=== PATIENT | male | born 1965 | race Caucasian/White ===

== ENCOUNTER 2016-12-03 16:58 | Inpatient (IN) | payer OTHER ==
[~2016-12-03] VITALS: Ht 180.3 cm; Wt 89.7 kg
[~2016-12-03 16:58] MED LIST: CEPH500 PO; CITA20 PO; LITH300 PO; NEUR100C PO
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
[2016-12-03 18:34] VITALS: BP 124/75; PULSE 98; RESP 18; TEMP 98.3; O2SAT 98
[2016-12-03] MEDS ORDERED: BUSP15TA PO (18:45)
[2016-12-03] MEDS ORDERED: [UNRECOGNIZED DRUG - REMARK] PO (18:45)
[2016-12-03] MEDS ORDERED: NEUR100C PO (18:45)
[2016-12-03] MEDS ORDERED: LAMO100 PO (18:45)
[2016-12-03] MEDS ORDERED: CELE20TA PO (18:45)
[2016-12-03 19:13] VITALS: BP 103/58; PULSE 81; RESP 14; O2SAT 95
[2016-12-03 19:29] LABS: AUTOMATED NEUTROPHIL # 3.2 TH/MM3 (1.8-7.7); BASOPHIL % 0.4 % (0.0-2.0); EOSINOPHIL # 0.2 TH/MM3 (0-0.4); EOSINOPHIL % 3.2 % (0.0-4.0); HEMATOCRIT 36.2 % (39.0-51.0); HEMO FLAGS DIFF FINAL; LYMPHOCYTE # 2.6 TH/MM3 (1.0-4.8); MEAN CELL VOLUME 94.9 FL (80.0-100.0); MEAN CORPUSCULAR HEMOGLOBIN 33.7 PG (27.0-34.0); MEAN CORPUSCULAR HGB CONC 35.4 % (32.0-36.0); MONO % 8.2 % (0.0-8.0); NEUT % 49.2 % (16.0-70.0); PLATELET COUNT 206 TH/MM3 (150-450); RED BLOOD COUNT 3.81 MIL/MM3 (4.50-5.90); RED CELL DISTRIBUTION WIDTH 13.1 % (11.6-17.2); WHITE BLOOD COUNT 6.5 TH/MM3 (4.0-11.0)
[2016-12-03 19:33] LABS: AMPHETAMINE, URINE NEG (NEG); BARBITURATES, URINE NEG (NEG); COCAINE, URINE POS (NEG)
[2016-12-03 19:57] LABS: ANION GAP 10 MEQ/L (5-15); AST (GOT) 25 U/L (15-37); BICARBONATE 22.6 MEQ/L (21.0-32.0); BLOOD UREA NITROGEN 20 MG/DL (7-18); CHLORIDE 107 MEQ/L (98-107); GLOMERULAR FILTRATION RATE 57 ML/MIN (>89); POTASSIUM 3.5 MEQ/L (3.5-5.1); SODIUM (NA) 140 MEQ/L (136-145)
[2016-12-03 19:58] LABS: ALT (GPT) 30 U/L (12-78)
[2016-12-03 20:00] LABS: ALKALINE PHOSPHATASE 85 U/L (45-117); TOTAL BILIRUBIN ADULT 0.2 MG/DL (0.2-1.0)
--- NOTE | 2016-12-03 20:03 | PD ---
Physical Exam Narrative GENERAL: [Alert, well-appearing male no acute distress. Patient resting on stretcher comfortably. SKIN: Focused skin assessment warm/dry. HEAD: Atraumatic. Normocephalic. EYES: Pupils equal and round. No scleral icterus. No injection or drainage. ENT: No nasal bleeding or discharge. Mucous membranes pink and moist. NECK: Trachea midline. No JVD. CARDIOVASCULAR: Regular rate and rhythm. No murmur appreciated. RESPIRATORY: No accessory muscle use. Clear to auscultation. Breath sounds equal bilaterally. GASTROINTESTINAL: Abdomen soft, non-tender, nondistended. Hepatic and splenic margins not palpable. MUSCULOSKELETAL: No obvious deformities. No clubbing. No cyanosis. No edema. NEUROLOGICAL: Awake and alert. No obvious cranial nerve deficits. Motor grossly within normal limits. Normal speech. PSYCHIATRIC: Appropriate mood and affect; insight and judgment normal. Data Data Last Documented VS Vital Signs Date Time Temp Pulse Resp B/P Pulse Ox O2 Delivery O2 Flow Rate FiO2 12/03/16 19:13 81 14 103/58 95 Room Air 12/03/16 18:34 98.3 Orders Complete Blood Count With Diff (12/03/16 17:47) Comprehensive Metabolic Panel (12/03/16 17:47) Psych Screen (12/03/16 17:47) Drug Screen, Random Urine (12/03/16 17:47) Alcohol (Ethanol) (12/03/16 17:47) Diet Regular Basic (12/03/16 Dinner) Diet Regular Basic (12/04/16 Breakfast) Labs Laboratory Tests Test 12/03/16 12/03/16 18:10 18:45 Urine Opiates Screen NEG Urine Barbiturates Screen NEG Urine Amphetamines Screen NEG Urine Benzodiazepines Screen NEG Urine Cocaine Screen POS Urine Cannabinoids Screen NEG White Blood Count 6.5 TH/MM3 Red Blood Count 3.81 MIL/MM3 Hemoglobin 12.8 GM/DL Hematocrit 36.2 % Mean Corpuscular Volume 94.9 FL Mean Corpuscular Hemoglobin 33.7 PG Mean Corpuscular Hemoglobin 35.4 % Concent Red Cell Distribution Width 13.1 % Platelet Count 206 TH/MM3 Mean Platelet Volume 8.1 FL Neutrophils (%) (Auto) 49.2 % Lymphocytes (%) (Auto) 39.0 % Monocytes (%) (Auto) 8.2 % Eosinophils (%) (Auto) 3.2 % Basophils (%) (Auto) 0.4 % Neutrophils # (Auto) 3.2 TH/MM3 Lymphocytes # (Auto) 2.6 TH/MM3 Monocytes # (Auto) 0.5 TH/MM3 Eosinophils # (Auto) 0.2 TH/MM3 Basophils # (Auto) 0.0 TH/MM3 CBC Comment DIFF FINAL Differential Comment Sodium Level 140 MEQ/L Potassium Level 3.5 MEQ/L Chloride Level 107 MEQ/L Carbon Dioxide Level 22.6 MEQ/L Anion Gap 10 MEQ/L Blood Urea Nitrogen 20 MG/DL Creatinine 1.31 MG/DL Estimat Glomerular Filtration 57 ML/MIN Rate Random Glucose 91 MG/DL Calcium Level 8.5 MG/DL Total Bilirubin 0.2 MG/DL Aspartate Amino Transf 25 U/L (AST/SGOT) Alanine Aminotransferase 30 U/L (ALT/SGPT) Alkaline Phosphatase 85 U/L Total Protein 7.1 GM/DL Albumin 3.8 GM/DL Ethyl Alcohol Level 164 MG/DL MDM Medical Record Reviewed: Yes Supervised Visit with YOAV: Yes Narrative Course [id number] assumed the care of patient at this time. Patient was seen and evaluated by myself. His labs are pending. He is awaiting psych screen pending medical clearance. CBC: Mild anemia hemoglobin 12.8, CMP: BUN/creatinine mildly elevated patient started follow-up with his primary care physician regarding this. Tox screen: Positive for cocaine Patient is medically clear. Pending psych screening. Diagnosis Primary Impression: Suicidal ideation Conchita Chung Dec 03, 2016 20:03
[2016-12-03 21:46] VITALS: BP 110/64; PULSE 73; RESP 18; TEMP 97.7; O2SAT 98
[2016-12-04] MEDS ORDERED: CEPH500C PO (00:13)
[2016-12-04] MEDS ORDERED: ASPI81TA11 PO (00:24)
[2016-12-04] MEDS ORDERED: ZOCO40TA PO (00:24)
[2016-12-04 02:27] VITALS: BP 103/62; PULSE 58; RESP 16; O2SAT 97
[2016-12-04 06:23] VITALS: BP 116/74; PULSE 57; RESP 16; O2SAT 98
[2016-12-04] MEDS ORDERED: CEPHALEXIN MONOHYDRATE 500 MG CAP PO ONE (09:45)
[2016-12-04] MEDS ORDERED: IBUPROFEN 800 MG TAB PO ONE (09:45)
[2016-12-04 10:00] VITALS: BP 123/75; PULSE 67; RESP 18
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
[2016-12-04] MEDS ORDERED: hydrOXYzine HCL 50 MG TAB PO PRN (11:30)
[2016-12-04] MEDS ORDERED: FLUMAZENIL 0.5 MG/5 ML VIAL IV PUSH PRN (11:30)
[2016-12-04] MEDS ORDERED: ALUMINUM/MAGNESIUM/SIMETH 30 ML CUP PO PRN (11:30)
[2016-12-04] MEDS ORDERED: LORazepam 1 MG TAB PO PRN (11:30)
[2016-12-04] MEDS ORDERED: ACETAMINOPHEN 325 MG TAB PO PRN (11:30)
[2016-12-04] MEDS ORDERED: BENZTROPINE MESYLATE 1 MG TAB PO PRN (11:30)
[2016-12-04] MEDS ORDERED: BENZTROPINE MESYLATE 2 MG/2 ML VIAL IM PRN (11:30)
[2016-12-04] MEDS ORDERED: LORazepam 2 MG TAB PO PRN (11:30)
[2016-12-04] MEDS ORDERED: LORazepam 2 MG/ML VIAL IM PRN ×4 (11:30)
[2016-12-04] MEDS ORDERED: diphenhydrAMINE HCL 50 MG CAP PO PRN (11:30)
[2016-12-04] MEDS: CITALOPRAM HYDROBROMIDE 40 MG TAB PO SCH (11:55)
[2016-12-04 12:57] VITALS: BP 150/87; PULSE 63; RESP 16; TEMP 98; O2SAT 100
[2016-12-04] MEDS: GABAPENTIN 100 MG CAP PO SCH (13:53)
[2016-12-04] MEDS: CEPHALEXIN MONOHYDRATE 500 MG CAP PO SCH ×3 (13:53→21:08)
[2016-12-04] MEDS: NICOTINE 21 MG/24 HR PATCH T-DERMAL SCH (14:22)
[2016-12-04] MEDS: IBUPROFEN 600 MG TAB PO PRN (18:36)
[2016-12-04 18:43] VITALS: BP 129/74; PULSE 58; RESP 16; TEMP 97.7; O2SAT 98
[2016-12-04] MEDS: LATANOPROST 0.005% OPHT SOLN 2.5 ML BTL EACH EYE SCH (21:00)
[2016-12-04] MEDS: busPIRone HCL 10 MG TAB PO SCH (21:07)
[2016-12-04] MEDS: PRAVASTATIN SOD 80 MG TAB PO SCH (21:08)
[2016-12-04] MEDS: GABAPENTIN 300 MG CAP PO SCH (21:08)
[2016-12-04] MEDS: lamoTRIgine 100 MG TAB PO SCH (21:09)
[2016-12-05] MEDS: IBUPROFEN 600 MG TAB PO PRN ×3 (03:58→20:37)
[2016-12-05 06:15] VITALS: BP 133/70; PULSE 96; RESP 18; TEMP 98.4; O2SAT 96
[2016-12-05] MEDS: CEPHALEXIN MONOHYDRATE 500 MG CAP PO SCH ×4 (08:49→20:36)
[2016-12-05] MEDS: ASPIRIN EC 81 MG TABEC PO SCH (08:50)
[2016-12-05] MEDS: PANTOPRAZOLE SOD 20 MG DELAYED RELEASE TAB PO SCH (08:50)
[2016-12-05] MEDS: FOLIC ACID 1 MG TAB PO SCH (08:50)
[2016-12-05] MEDS: lamoTRIgine 100 MG TAB PO SCH ×2 (08:50→20:38)
[2016-12-05] MEDS: CITALOPRAM HYDROBROMIDE 40 MG TAB PO SCH (08:50)
[2016-12-05] MEDS: THIAMINE HCL 100 MG TAB PO SCH (08:51)
[2016-12-05] MEDS: busPIRone HCL 10 MG TAB PO SCH ×2 (08:51→20:39)
[2016-12-05] MEDS ORDERED: NICOTINE 21 MG/24 HR PATCH T-DERMAL SCH (09:00)
[2016-12-05] MEDS: GABAPENTIN 100 MG CAP PO SCH ×2 (09:00→14:46)
[2016-12-05] MEDS: NICOTINE 21 MG/24 HR PATCH T-DERMAL SCH (09:49)
[2016-12-05] MEDS: MAGNESIUM HYDROXIDE SUSP 30 ML CUP PO PRN (09:49)
[2016-12-05 10:19] LABS: ANION GAP 7 MEQ/L (5-15); BLOOD UREA NITROGEN 19 MG/DL (7-18); CHLORIDE 107 MEQ/L (98-107); GLOMERULAR FILTRATION RATE 69 ML/MIN (>89); HDL CHOLESTEROL 55.5 MG/DL (40.0-60.0); LDL CHOLESTEROL 139 MG/DL (0-99); POTASSIUM 4.3 MEQ/L (3.5-5.1); SODIUM (NA) 139 MEQ/L (136-145)
[2016-12-05 13:15] LABS: HEMOGLOBIN A1a 1.2 %; HEMOGLOBIN A1b 1.8 %; HEMOGLOBIN Ao 84.8 %; HEMOGLOBIN LA1C 2.2 %; HEMOGLOBIN P3 3.8 %
--- NOTE | 2016-12-05 14:45 | HHI.PYPN ---
Subjective Remarks Patient was seen and case discussed with nursing. CIWA is 0. She is alert and oriented 4. No auditory visual hallucinations, no confusion, no nausea or vomiting, no tremors. Patient remains depressed secondary to various life stressors. Minimizes his recent cocaine use. Affect is constricted. Mood remains depressed. He denies suicidal ideation intent or plan Objective Alert: Yes [place]: Person, Place, Date, Situation Mood: Depressed Affect: Blunted Memory Intact: Immediate (grossly intact) Hallucinations: Auditory (denies) Delusions: No Delusion Type: Other (none elicited) Suicidal: Ideation (denies) Homicidal: Ideation (denies) Insight/Judgment Poor Labs Test 12/05/16 09:24 Sodium Level 139 MEQ/L Potassium Level 4.3 MEQ/L Chloride Level 107 MEQ/L Carbon Dioxide Level 25.0 MEQ/L Anion Gap 7 MEQ/L Blood Urea Nitrogen 19 MG/DL Creatinine 1.12 MG/DL Estimat Glomerular Filtration 69 ML/MIN Rate Random Glucose 98 MG/DL Hemoglobin A1c 5.7 % Calcium Level 9.3 MG/DL Triglycerides Level 190 MG/DL Cholesterol Level 232 MG/DL LDL Cholesterol 139 MG/DL HDL Cholesterol 55.5 MG/DL Cholesterol/HDL Ratio 4.18 RATIO Vitals/IOs Vital Signs Date Time Temp Pulse Resp B/P Pulse Ox O2 Delivery O2 Flow Rate FiO2 12/05/16 06:15 98.4 96 18 133/70 96 12/04/16 10:00 Room Air Assessment & Plan Problem List: (1) Bipolar disorder ICD Code: F31.9 (2) Polysubstance abuse ICD Code: F19.10 Assessment & Plan Continue current treatment plan Justification for Cont. Inpt. Patient would decompensate in a less restrictive setting Request HC Surrog/Guard Advoc?: No Problem Qualifiers (1) Bipolar disorder: Qualified Code: F31.4 - Bipolar disorder, current episode depressed, severe, without psychotic features Fam Alcala DO Dec 05, 2016 14:45
[2016-12-05 15:34] VITALS: BP 113/78; PULSE 65; RESP 18; TEMP 97.4
[2016-12-05] MEDS: PRAVASTATIN SOD 80 MG TAB PO SCH (20:38)
[2016-12-05] MEDS: GABAPENTIN 300 MG CAP PO SCH (20:40)
[2016-12-05] MEDS: LATANOPROST 0.005% OPHT SOLN 2.5 ML BTL EACH EYE SCH (20:55)
[2016-12-06] MEDS: IBUPROFEN 600 MG TAB PO PRN ×2 (05:43→15:57)
[2016-12-06 06:03] VITALS: BP 121/71; PULSE 59; RESP 16; TEMP 97.7; O2SAT 97
[2016-12-06] MEDS: busPIRone HCL 10 MG TAB PO SCH ×2 (09:19→20:13)
[2016-12-06] MEDS: ASPIRIN EC 81 MG TABEC PO SCH (09:19)
[2016-12-06] MEDS: lamoTRIgine 100 MG TAB PO SCH ×2 (09:19→20:13)
[2016-12-06] MEDS: THIAMINE HCL 100 MG TAB PO SCH (09:19)
[2016-12-06] MEDS: CITALOPRAM HYDROBROMIDE 40 MG TAB PO SCH (09:19)
[2016-12-06] MEDS: FOLIC ACID 1 MG TAB PO SCH (09:19)
[2016-12-06] MEDS: PANTOPRAZOLE SOD 20 MG DELAYED RELEASE TAB PO SCH (09:19)
[2016-12-06] MEDS: CEPHALEXIN MONOHYDRATE 500 MG CAP PO SCH ×4 (09:19→20:13)
[2016-12-06] MEDS: REMOVE OLD PATCH T-DERMAL SCH (09:24)
[2016-12-06] MEDS: NICOTINE 21 MG/24 HR PATCH T-DERMAL SCH (09:24)
[2016-12-06] MEDS: GABAPENTIN 100 MG CAP PO SCH ×2 (09:37→13:17)
--- NOTE | 2016-12-06 13:00 | HHI.PYPN ---
Subjective Remarks Patient seen and examined with nurse. Chart reviewed. Case discussed with nursing staff. On my examination today, the patient reports mood is slowly improving. He is somewhat future oriented, thinking about employment after discharge. Ongoing feelings of worthlessness. Sleep remains somewhat disrupted. Denies side effects from medications. No physical complaints. Review of Systems Except as stated in HPI: all other systems reviewed are Neg Objective Alert: Yes [place]: Person (oriented 3) Mood: Depressed (improving) Affect: Blunted Memory Intact: Comment (intact on clinical exam) Hallucinations: Other (no hallucinations) Delusions: No Delusion Type: Other (no delusions elicited) Suicidal: Ideation (no SI) Homicidal: Ideation (no HI) Insight/Judgment Fair Remarks No motor abnormalities. Thought processes linear. Grooming and hygiene good. No visible rash. Labs Labs reviewed. Vitals/IOs Vital Signs Date Time Temp Pulse Resp B/P Pulse Ox O2 Delivery O2 Flow Rate FiO2 12/06/16 06:03 97.7 59 16 121/71 97 12/04/16 10:00 Room Air Assessment & Plan Problem List: (1) Bipolar disorder ICD Code: F31.9 (2) Polysubstance abuse ICD Code: F19.10 Assessment & Plan Continue Lamictal as ordered. We might consider titrating this medication again , but we need to titrate slowly because of the risk of SJS. Offered patient hypnotic, but he says he has tried "all of them" and that they have paradoxical activating effect. Continue other psychotropics as ordered. Continue other medications and care as ordered. Justification for Cont. Inpt. Risk for decompensation Discharge Planning Pending stabilization anticipate discharge by the end of the week; Request HC Surrog/Guard Advoc?: No Problem Qualifiers (1) Bipolar disorder: Qualified Code: F31.4 - Bipolar disorder, current episode depressed, severe, without psychotic features Jameson Estrada MD Dec 06, 2016 13:00
[2016-12-06 17:12] VITALS: BP 112/67; PULSE 58; RESP 18; TEMP 97.8; O2SAT 98
[2016-12-06] MEDS: PRAVASTATIN SOD 80 MG TAB PO SCH (20:13)
[2016-12-06] MEDS: GABAPENTIN 300 MG CAP PO SCH (20:13)
[2016-12-06] MEDS: LATANOPROST 0.005% OPHT SOLN 2.5 ML BTL EACH EYE SCH (20:14)
[2016-12-07] MEDS: IBUPROFEN 600 MG TAB PO PRN ×2 (04:49→14:42)
[2016-12-07 06:18] VITALS: BP 112/70; PULSE 56; RESP 16; TEMP 97; O2SAT 98
[2016-12-07] MEDS: lamoTRIgine 100 MG TAB PO SCH ×2 (08:17→21:17)
[2016-12-07] MEDS: CEPHALEXIN MONOHYDRATE 500 MG CAP PO SCH ×4 (08:17→21:16)
[2016-12-07] MEDS: PANTOPRAZOLE SOD 20 MG DELAYED RELEASE TAB PO SCH (08:17)
[2016-12-07] MEDS: FOLIC ACID 1 MG TAB PO SCH (08:17)
[2016-12-07] MEDS: GABAPENTIN 100 MG CAP PO SCH ×2 (08:18→13:24)
[2016-12-07] MEDS: THIAMINE HCL 100 MG TAB PO SCH (08:18)
[2016-12-07] MEDS: ASPIRIN EC 81 MG TABEC PO SCH (08:18)
[2016-12-07] MEDS: CITALOPRAM HYDROBROMIDE 40 MG TAB PO SCH (08:18)
[2016-12-07] MEDS: busPIRone HCL 10 MG TAB PO SCH ×2 (08:18→21:16)
[2016-12-07] MEDS: NICOTINE 21 MG/24 HR PATCH T-DERMAL SCH (08:24)
[2016-12-07] MEDS: REMOVE OLD PATCH T-DERMAL SCH (08:25)
--- NOTE | 2016-12-07 09:40 | HHI.PYPN ---
Subjective Remarks Patient seen and examined. Chart reviewed. Case discussed in treatment team. On my examination today, patient remains fairly pessimistic. He says "nothing is going right." Overwhelmed by psychosocial stressors. Glad to be here in the hospital by his report. No SI/HI. Denies side effects from medications. No physical complaints. Requests sutures on lesion under R eye be removed, says they were supposed to be taken out a few days ago. Review of Systems Except as stated in HPI: all other systems reviewed are Neg Objective Alert: Yes [place]: Person, Place, Date Mood: Depressed Affect: Appropriate Memory Intact: Comment (intact) Hallucinations: Other (No AVH) Delusions: No Delusion Type: Other (no delusions elicited) Suicidal: Ideation (no SI) Homicidal: Ideation (no HI) Insight/Judgment Fair Remarks No motor abnormalities noted. TP linear. No visible rash. Lac under R eye appears well healed with no signs of swelling or erythema. Labs Labs reviewed. Vitals/IOs Vital Signs Date Time Temp Pulse Resp B/P Pulse Ox O2 Delivery O2 Flow Rate FiO2 12/07/16 06:18 97.0 56 16 112/70 98 12/04/16 10:00 Room Air Assessment & Plan Problem List: (1) Bipolar disorder ICD Code: F31.9 (2) Polysubstance abuse ICD Code: F19.10 Assessment & Plan Discussed with patient possible pharmacotherapeutic options re: ongoing low mood. We can titrate Lamictal but must do so slowly due to risk of SJS. I discussed possibly changing or augmenting his antidepressant, but he has never found this strategy terribly helpful. He declines medication adjustment at this time. Remove sutures and apply bacitracin to the wound under his right eye. Continue to monitor on the inpatient unit. Continue other medications and care as ordered. Justification for Cont. Inpt. Risk for decompensation Discharge Planning Pending stabilization Request HC Surrog/Guard Advoc?: No Problem Qualifiers (1) Bipolar disorder: Qualified Code: F31.4 - Bipolar disorder, current episode depressed, severe, without psychotic features Jameson Estrada MD Dec 07, 2016 09:40
[2016-12-07 18:00] VITALS: BP 107/74; PULSE 63; RESP 16; TEMP 98; O2SAT 95
[2016-12-07] MEDS: GABAPENTIN 300 MG CAP PO SCH (21:00)
[2016-12-07] MEDS: BACITRACIN TOP OINT 15 GM TUBE TOPICAL SCH (21:00)
[2016-12-07] MEDS: LATANOPROST 0.005% OPHT SOLN 2.5 ML BTL EACH EYE SCH (21:15)
[2016-12-07] MEDS: PRAVASTATIN SOD 80 MG TAB PO SCH (21:16)
[2016-12-08 05:32] VITALS: BP 109/57; PULSE 56; RESP 18; TEMP 98.1; O2SAT 96
[2016-12-08] MEDS: IBUPROFEN 600 MG TAB PO PRN ×2 (06:37→13:55)
[2016-12-08] MEDS: NICOTINE 21 MG/24 HR PATCH T-DERMAL SCH (08:58)
[2016-12-08] MEDS: FOLIC ACID 1 MG TAB PO SCH (08:58)
[2016-12-08] MEDS: CITALOPRAM HYDROBROMIDE 40 MG TAB PO SCH (08:58)
[2016-12-08] MEDS: ASPIRIN EC 81 MG TABEC PO SCH (08:58)
[2016-12-08] MEDS: PANTOPRAZOLE SOD 20 MG DELAYED RELEASE TAB PO SCH (08:59)
[2016-12-08] MEDS: GABAPENTIN 100 MG CAP PO SCH ×2 (08:59→12:40)
[2016-12-08] MEDS: lamoTRIgine 100 MG TAB PO SCH (08:59)
[2016-12-08] MEDS: busPIRone HCL 10 MG TAB PO SCH (08:59)
[2016-12-08] MEDS: CEPHALEXIN MONOHYDRATE 500 MG CAP PO SCH ×2 (08:59→12:40)
[2016-12-08] MEDS: THIAMINE HCL 100 MG TAB PO SCH (08:59)
[2016-12-08] MEDS: REMOVE OLD PATCH T-DERMAL SCH (09:00)
[2016-12-08] MEDS: BACITRACIN TOP OINT 15 GM TUBE TOPICAL SCH (09:00)
[2016-12-08] MEDS: MAGNESIUM HYDROXIDE SUSP 30 ML CUP PO PRN (10:28)
[2016-12-08] MEDS ORDERED: LATA.005%O EACH EYE (11:59)
[2016-12-08] MEDS ORDERED: GABA100C4 PO (11:59)
[2016-12-08] MEDS ORDERED: PANT20 PO (11:59)
[2016-12-08] MEDS ORDERED: BUSP10TA PO (11:59)
[2016-12-08] MEDS ORDERED: PRAV80TA PO (11:59)
[2016-12-08] MEDS ORDERED: LAMO100 PO ×2 (11:59)
[2016-12-08] MEDS ORDERED: CELE40TA PO (11:59)
[2016-12-08] MEDS ORDERED: ASPI-99 PO (11:59)
[2016-12-08] MEDS ORDERED: NEUR300C PO (11:59)
[2016-12-08] MEDS ORDERED: CEPH500C PO (11:59)
--- NOTE | 2016-12-08 11:59 | HHI.DS ---
Psychiatry Discharge Summary Inpatient Psychiatric care?: Yes Advance Directive: Yes Mental Health AdvanceDirective: No Health Care Proxy: No Admission Admission Date Dec 04, 2016 at 11:01 Admission Diagnosis: (1) Bipolar 1 disorder, depressed, severe ICD Code: F31.4 (2) Polysubstance abuse ICD Code: F19.10 Brief History Mr. Nuñez is a 51-year-old male with a reported history of bipolar disorder and a chart history of substance use issues who presents under a Wolfe act alleging suicidal ideation in the context of intoxication. Reviewing the electronic medical record, I note that the patient was admitted here at [facility] under my care in January 2015. He did apparently have some fairly significant personality pathology at that time. Patient seen and examined. Chart reviewed. Case discussed with nursing staff. On my examination today, the patient reports that he has been feeling increasingly depressed over the last several weeks. He is apparently hopelessness regarding his job situation. He is unemployed and looking for work but he has a history of charges of resisting arrest with violence and says that this is prejudicial against him getting any sort of meaningful employment. In addition to the hopelessness, anhedonia is present. Sleep is reportedly poor. Appetite fair. Some worthlessness. Endorses suicidal ideation but says "I feel pretty safe in here." Some subtle manipulativeness noted, possibly a harbinger of things to come, but for the time being he is generally cooperative. No psychotic symptoms. No hypomanic or manic symptoms. The remainder of the psychiatric ROS is negative. Past psychiatric history: Patient reports a history of bipolar disorder. Currently he is on Celexa and Lamictal along with BuSpar and gabapentin. Follows at the [facility]. Most recent psychiatric admission was here at [facility]. Endorses a history of multiple prior suicide attempts including by overdose and running into traffic. Family history: Patient denies a family history of serious mental illness or suicide. There is a family history of substance use issues. Chemical dependency history: Patient reports that he uses cocaine "here and there." Maintains that his alcohol use is sporadic. Denies a history of DTs or seizures. No other substance use. Social history: Lives with his in his mother's house. He has several stepchildren. He is an [employer] , honorable discharge, no combat. Denies any access to guns or firearms. Hindu. Not presently working. Trying to get on disability. Legal history as above. Tobacco Use In Past 30 Days: No Tobacco Past 30 Days Alcohol Use: 2-3 Times Per Week Hospital Course Patient was admitted to a locked, inpatient psychiatric unit. Appropriate precautions were in place throughout patient's hospital stay. Patient was seen and examined daily on the unit by psychiatry and also visited by counselor. Psychotropic medications were adjusted. Patient tolerated medication changes well without side effects. Patient had improvement in his presenting psychiatric symptomatology during the course of his hospital stay. There was no evidence of any suicidality or homicidality while under observation on the inpatient unit. The patient remained in good behavioral control. He was medication compliant. On the day of discharge: Patient seen and examined with nurse. Chart reviewed. Case discussed with nursing staff. No behavioral issues noted overnight. On my examination today, the patient reports that he feels improved from a psychiatric standpoint and is ready to leave the inpatient unit. He is quite future oriented and discusses plans to enter into chemical dependency rehabilitation and also pursue psychotherapy on an outpatient basis. He denies suicidal or homicidal ideation, intent or plan on direct questioning and contracts for safety. Mood is improved versus admission I can elicit no depressive or hypomanic/manic symptoms at this time. No audiovisual hallucinations, and I can elicit no delusional material. He denies side effects from medications. He has no physical complaints. Weighing the acute, chronic, and protective factors and based on the available evidence, I conveyor weigher operator to a reasonable degree of medical certainty that the patient is at low imminent risk of harm to self or others from a mental illness and his level of function is adequate for outpatient care. The patient has maximized benefit from this inpatient psychiatric hospital stay will be discharged today with psychiatric follow-up as arranged by counselor. Patient is also to follow-up with primary care. I have counseled the patient to abstain from substances of abuse and to pursue chemical dependency evaluation and treatment. I counseled the patient regarding warning signs for need to return to the psychiatric emergency room as part of the general safety plan. Results Blood Pressure 109 / 57 Vital Signs Date Time Temp Pulse Resp B/P Pulse Ox O2 Delivery O2 Flow Rate FiO2 12/08/16 05:32 98.1 56 18 109/57 96 12/04/16 10:00 Room Air Laboratory Results Test 12/05/16 09:24 Hemoglobin A1c 5.7 % (4.3-6.0) Triglycerides Level 190 MG/DL (42-150) Cholesterol Level 232 MG/DL (120-200) LDL Cholesterol 139 MG/DL (0-99) HDL Cholesterol 55.5 MG/DL (40.0-60.0) Summary of Procedures Sutures removed from wound under R eye. Wound is well healed, c/d/i with no swelling or erythema. Imaging None done Pending results at discharge: No Medications # of Antipsychotic meds at D/C: 0 Approp Antipsych med options 1 - Minimum of three failed multiple trials of monotherapy. 2 - Documented plan to taper to monotherapy due to previous use of multiple meds OR cross-taper in progress at D/C. 3 - Documentation of augmentation of Clozapine. 4 - Justification other than those listed in allowable values 1-3, document here : Discharge Discharge Date: Dec 08, 2016 Discharge Diagnosis: (1) Bipolar disorder, in partial remission, most recent episode depressed Diagnosis: Principal ICD Code: F31.75 (2) Polysubstance abuse ICD Code: F19.10 GAF is 60 on discharge Mental Status Exam at Disch Patient is casually dressed. He is well groomed. He is maintaining basic hygiene. He is awake and alert and oriented to person and hospital at least. No evidence of delirium. No motor abnormalities noted. No signs of withdrawal noted. No visible rash. Speech is within normal limits for rate, tone and volume. Language and fund of knowledge seem average. Focus and concentration intact. Memory grossly intact on clinical exam. Mood is improved versus admission and affect is full and reactive. Thought process linear. No loosening of associations. No delusional material elicited. Denies audiovisual hallucinations. Denies suicidal or homicidal ideation, intent or plan. Insight and judgment are fair. Pt Condition on Discharge: Stable Discharge Disposition: Discharge Home Discharge Instructions Diet Instructions: As Tolerated, No Restrictions Activities you can perform: Weight Bearing as Elias Scheduled Appointment: as per counselor's notes New Medications: Aspirin DR (Adult Aspirin EC Low Strength) 81 Mg Tabec 81 MG PO DAILY Order to update med rec. Pt has adequate supply. Health Days 0 Ref 0 TAB Buspirone (Buspirone) 10 Mg Tab 15 MG PO BID Order to update med rec. Pt has adequate supply. Mental Health Days 0 Ref 0 TAB Cephalexin (Cephalexin) 500 Mg Cap 500 MG PO QID Discuss with OP provider appropriateness of ongoing antibiotics. Order to update med rec. Pt has adequate supply. Health Days 0 Ref 0 CAP Citalopram (Celexa) 40 Mg Tab 40 MG PO DAILY Order to update med rec. Pt has adequate supply. Mental Health Days 0 Ref 0 TAB Gabapentin (Gabapentin) 100 Mg Cap 100 MG PO BID@,13 Order to update med rec. Pt has adequate supply. Health Days 0 Ref 0 CAP Gabapentin (Neurontin) 300 Mg Cap 300 MG PO HS Order to update med rec. Pt has adequate supply. Health Days 0 Ref 0 CAP Lamotrigine (Lamictal) 100 Mg Tab 150 MG PO HS Mental Health Days 15 Ref 1 TAB Lamotrigine (Lamictal) 100 Mg Tab 100 MG PO DAILY Order to update med rec. Pt has adequate supply. Mental Health Days 0 Ref 0 TAB Latanoprost Opth Drops (Xalatan Opth Drops) 0.005% Drops 1 DROP EACH EYE HS Order to update med rec. Pt has adequate supply. Health Days 0 Ref 0 ML Pantoprazole (Protonix) 20 Mg Tab 20 MG PO DAILY Order to update med rec. Pt has adequate supply. Health Days 0 Ref 0 TAB Pravastatin (Pravachol) 80 Mg Tab 80 MG PO HS Order to update med rec. Pt has adequate supply. Health Days 0 Ref 0 TAB Discharge Time <= 30 minutes Discharge/Advance Care Plan Health Problems: (1) Bipolar disorder (2) Polysubstance abuse Goals to promote your health * To prevent worsening of your condition and complications * To maintain your health at the optimal level Directions to meet your goals Take your medications as prescribed Follow your dietary instruction Follow activity as directed Keep your appointments as scheduled Take your immunizations and boosters as scheduled If your symptoms worsen call your PCP, if no PCP go to Urgent Care Center or Emergency Room For 24/7 questions related to your inpatient stay or results of tests pending at discharge, please contact Dr. Jameson Estrada at Smoking is Dangerous to Your Health. Avoid second hand smoking Jameson Estrada MD Dec 08, 2016 11:59
== END 2016-12-08 14:05 | disposition home or self-care (01) | DRG 885 ==
LOC: NEPD 16:58 → NEDA 12-04 11:01 → H260 12-04 12:14
PROVIDERS: ADMIT Psychiatry & Neurology Psychiatry; ATTEND Psychiatry & Neurology Psychiatry
DX: F31.4 Bipolar disorder, current episode depressed, severe, without psychotic features (principal); R45.851 Suicidal ideations; F43.12 Post-traumatic stress disorder, chronic; F41.9 Anxiety disorder, unspecified; D64.9 Anemia, unspecified; F14.10 Cocaine abuse, uncomplicated; Y90.6 Blood alcohol level of 120-199 mg/100 ml; F10.120 Alcohol abuse with intoxication, uncomplicated; R45.84 Anhedonia; Z91.5 Personal history of self-harm
CPT/HCPCS: 80048; 80053; 80061; 80307; 83036; 85025; Q0163